=== PATIENT | female | born 1995 | race Caucasian/White ===

== ENCOUNTER 2019-02-18 17:37 | Emergency (ER) | payer OTHER ==
[2019-02-18] MEDS ORDERED: morphine CARPU-JECT 2 MG/1 ML DISP.SYRIN IVPUSH ONE (17:43)
[2019-02-18 17:44] VITALS: BMI 30.9
--- NOTE | 2019-02-18 17:46 | PDOC ---
Rapid Medical Evaluation Chief Complaint: Vaginal Bleeding Time Seen by Provider: 02/18/19 17:42 Medical Evaluation: Allergies Allergy/AdvReac Type Severity Reaction Status Date / Time No Known Allergies Allergy Verified 10/29/17 15:55 Vital Signs Temp Pulse Resp BP Pulse Ox 98.1 F 90 19 143/80 99 02/18/19 17:41 02/18/19 17:41 02/18/19 17:41 02/18/19 17:41 02/18/19 17:41 02/18/19 17:43 Patient c/o: severe abd cramping with heavy vag bleed, lmp 01/23, no hx of fibroid/endometriosis Patient on brief exam: vss, mid suprapubic tenderness Patient ordered for: labs, urine, iv, mso4 Patient to proceed to the ED Discharge Disposition - Diagnosis Abdominal pain, Miscarriage - Discharge Dispostion Disposition: HOME Condition at time of disposition: Stable - Referrals Referrals: Andres Franco MD [Staff Physician] - - Patient Instructions Printed Discharge Instructions: DI for Miscarriage Additional Instructions: Please have your beta hcg lab repeated on SaturdayFebruary 20. Please call your PHYSICAL SCIENCES PROFESSOR tomorrow to schedule a follow up appointment. If you start to have heavy vaginal bleeding - more than 2 pads an hour for more than 2 hours please return to the emergency room immediately. Please return to the ED with any further concerns or complaints. - Post Discharge Activity
[2019-02-18 18:14] LABS: BASO % 0.4 % (0-2.0); EOS % 3.7 % (0-4.5); HEMATOCRIT 40.4 % (32.4-45.2); HEMOGLOBIN 13.5 GM/dL (10.7-15.3); LYMPH % 34.9 % (8-40); MCH 31.2 pg (25.7-33.7); MCHC 33.5 g/dl (32.0-36.0); MEAN CELL VOLUME 93.2 fl (80-96); MEAN PLT VOLUME 10.4 fl (7.5-11.1); MONO % 7.6 % (3.8-10.2); NEUT % 53.4 % (42.8-82.8); PLATELET COUNT 249 K/MM3 (134-434); RBC 4.34 M/mm3 (3.60-5.2); RDW 12.4 % (11.6-15.6); WHITE BLOOD COUNT 6.7 K/mm3 (4.0-10.0)
[2019-02-18] MEDS ORDERED: ACETAMINOPHEN 325 MG TABLET (FP) PO ONE (18:32)
[2019-02-18 18:35] LABS: ALBUMIN 3.9 g/dl (3.4-5.0); BILIRUBIN,TOTAL 0.2 mg/dL (0.2-1); BLOOD UREA NITROGEN 7.1 mg/dL (7-18); CALCIUM 9.7 mg/dL (8.5-10.1); CREATININE 0.7 mg/dL (0.55-1.3); POTASSIUM 4.1 mmol/L (3.5-5.1); TOT PROT 7.9 g/dl (6.4-8.2)
[2019-02-18] MEDS ORDERED: ACETAMINOPHEN 1000 MG/100 ML VIAL (NON FORMULARY) IVPB ONE (18:42)
[2019-02-18] MEDS ORDERED: SODIUM CHLORIDE 0.9% 1000 ML INFUS.BAG IV ONE (18:42)
[2019-02-18] MEDS ORDERED: ACETAMINOPHEN INJECTION 100 ML IVPB ONE (18:43)
--- NOTE | 2019-02-18 19:01 | PDOC ---
Documentation entered by Gunner Tran SCRIBE, acting as scribe for Samanta Gifford DO. Samanta Gifford DO: This documentation has been prepared by the Marc dominguez Xhesika, SCRIBE, under my direction and personally reviewed by me in its entirety. I confirm that the documentation accurately reflects all work, treatment, procedures, and medical decision making performed by me. History of Present Illness - General Chief Complaint: Vaginal Bleeding Stated Complaint: VAGINAL BLEEDING/ABD/PAIN Time Seen by Provider: 02/18/19 17:42 History Source: Patient Exam Limitations: No Limitations - History of Present Illness Initial Comments: 02/18/19 18:46 The patient is a 23 year old female, , ?currently , with no significant past medical history, who presents to the emergency department with 3 days of heavy vaginal bleeding with clots and severe abdominal cramping. Patient notes she has been going through 3 pads per day. Patient reports her last normal menstrual period was 01/25/19. Pt denies any vaginal discharge prior to her . The patient denies chest pain, shortness of breath, headache and dizziness. Denies fever, chills, cough, nausea, vomiting, diarrhea and constipation. Allergies: NKDA Past surgical history: Social history: denies tobacco, and illicit drug use Past History - Past Medical History Allergies/Adverse Reactions: Allergies Allergy/AdvReac Type Severity Reaction Status Date / Time No Known Allergies Allergy Verified 02/18/19 17:44 Home Medications: Ambulatory Orders NK [No Known Home Medication] 02/18/19 COPD: No - Psycho Social/Smoking Cessation Hx Smoking History: Never smoked Information on smoking cessation initiated: No Hx Alcohol Use: No Drug/Substance Use Hx: No Substance Use Type: None Review of Systems - Review of Systems Able to Perform ROS?: Yes Comments:: 02/18/19 18:47 GENERAL/CONSTITUTIONAL: No fever or chills. No weakness. HEAD, EYES, EARS, NOSE AND THROAT: No change in vision. No ear pain or discharge. No sore throat. CARDIOVASCULAR: No chest pain or shortness of breath. RESPIRATORY: No cough, wheezing, or hemoptysis. GASTROINTESTINAL: No nausea, vomiting, diarrhea or constipation. GENITOURINARY: No dysuria, frequency, or change in urination. PELVIC: + vaginal bleeding with clots. +abdominal cramping MUSCULOSKELETAL: No joint or muscle swelling or pain. No neck or back pain. SKIN: No rash NEUROLOGIC: No headache, vertigo, loss of consciousness, or change in strength/ sensation. ENDOCRINE: No increased thirst. No abnormal weight change. HEMATOLOGIC/LYMPHATIC: No anemia, easy bleeding, or history of blood clots. ALLERGIC/IMMUNOLOGIC: No hives or skin allergy. *Physical Exam - Vital Signs Last Vital Signs Temp Pulse Resp BP Pulse Ox 98.1 F 90 19 143/80 99 02/18/19 17:41 02/18/19 17:41 02/18/19 17:41 02/18/19 17:41 02/18/19 17:41 - Physical Exam 02/18/19 18:48 GENERAL: Awake, alert, and fully oriented, in no acute distress LUNGS: Breath sounds equal, clear to auscultation bilaterally. No wheezes, and no crackles HEART: Regular rate and rhythm, normal S1 and S2, no murmurs, rubs or gallops ABDOMEN: +tenderness to palpation at suprapubic region. Soft, normoactive bowel sounds. No guarding, no rebound. No masses PELVIC: +actively bleeding with clot at cervix. EXTREMITIES: Normal range of motion, no edema. No clubbing or cyanosis. No cords, erythema, or tenderness NEUROLOGICAL: Cranial nerves II through XII grossly intact. SKIN: Warm, Dry, normal turgor, no rashes or lesions noted. ED Treatment Course - LABORATORY CBC & Chemistry Diagram: 02/18/19 17:53 02/18/19 17:53 - ADDITIONAL ORDERS Additional order review: Laboratory Results 02/18/19 02/18/19 17:53 17:53 Sodium 138 Potassium 4.1 Chloride 104 Carbon Dioxide 26 Anion Gap 7 L BUN 7.1 Creatinine 0.7 Est GFR (CKD-EPI)AfAm 142.54 Est GFR (CKD-EPI)NonAf 122.98 Random Glucose 97 Calcium 9.7 Total Bilirubin 0.2 AST 16 ALT 25 Alkaline Phosphatase 65 Total Protein 7.9 Albumin 3.9 Serum , Qual Positive 02/18/19 17:53 RBC 4.34 MCV 93.2 MCHC 33.5 RDW 12.4 MPV 10.4 Neutrophils % 53.4 D Lymphocytes % 34.9 D Monocytes % 7.6 Eosinophils % 3.7 Basophils % 0.4 - RADIOLOGY Radiology Studies Ordered: Category Date Time Status TRANSVAGINAL US PREG [US] Stat Ultrasound 02/18/19 18:31 Ordered - Medications Given in the ED: ED Medications Discontinued Medications Generic Name Dose Route Start Last Admin Trade Name Wisam PRN Reason Stop Dose Admin Acetaminophen 1,000 mg 02/18/19 18:42 02/18/19 18:56 Ofirmev Injection - IVPB 02/18/19 18:43 1,000 mg ONCE ONE Administration Sodium Chloride 1,000 ml 02/18/19 18:42 02/18/19 18:56 Normal Saline - IV 02/18/19 18:43 1,000 ml ONCE ONE Administration Medical Decision Making - Medical Decision Making 02/18/19 18:58 a/p: 23yo with heavy vaginal bleeding and cramping x 3 days -pt states LMP 11/10 and was a normal cycle -states heavy bleeding, passing clots x 3 days -cramping in lower abd -1 prior c section -labs from [facility] reviewed and serum preg + -will add beta, type and screen, coags -will start ivf hydraiton -os open on exam with clot with poss products of conception at the open os, unable to grab it or remove it -will monitor and reassess -pt to [facility] 02/18/19 19:14 concern pt is actively having a miscarriage 02/18/19 21:27 beta 800 a+ on labs tvus shows clots and missed ab pt states pain improved 02/18/19 21:52 discussed labs and imaging pt states barely bleeding now discussed follow up with [facility] in 1-2 days ([facility]park) and also having a repeat beta hcg pt states she feels better and no longer has pain stable for dc to home answered all questions and discussed all reasons to return to the ED Discharge - Discharge Information Problems reviewed: Yes Clinical Impression/Diagnosis: Abdominal pain, Miscarriage Condition: Stable Disposition: HOME - Admission No - Follow up/Referral Referrals: Andres Franco MD [Staff Physician] - - Patient Discharge Instructions Patient Printed Discharge Instructions: DI for Miscarriage Additional Instructions: Please have your beta hcg lab repeated on SaturdayFebruary 20. Please call your SCALE MECHANIC tomorrow to schedule a follow up appointment. If you start to have heavy vaginal bleeding - more than 2 pads an hour for more than 2 hours please return to the emergency room immediately. Please return to the ED with any further concerns or complaints. - Post Discharge Activity
[2019-02-18 19:53] LABS: INR 0.96 (0.83-1.09); PROTHROMBIN TIME (PATIENT) 11.3 SEC (9.7-13.0)
[2019-02-18 19:56] LABS: ACTIVATED PTT 28.3 SECONDS (25.2-36.5)
[2019-02-18 20:34] VITALS: TEMP 98.4
[2019-02-18 22:01] VITALS: BP 134/74; PULSE 81
== END 2019-02-18 22:01 | disposition home or self-care (01) ==
LOC: JER 17:37
PROC: 3E033NZ Introduction of Analgesics, Hypnotics, Sedatives into Peripheral Vein, Percutaneous Approach (ICD-10-PCS; principal; 2019-02-18)
DX: O03.9 Complete or unspecified spontaneous abortion without complication (principal); R10.9 Unspecified abdominal pain
CPT/HCPCS: 36415; 76817-TC; 80053; 84702; 84703; 85025; 85610; 85730; 86850; 86900; 86901; 99283-25; J0131; J7030

== ENCOUNTER 2020-03-07 10:44 | Emergency (ER) | payer OTHER ==
[2020-03-07 11:00] VITALS: BP 128/76; PULSE 76; TEMP 98.1; BMI 31.7
[2020-03-07 11:46] LABS: EPI CELLS >36 /uL (0-25.1); HYALINE CASTS 3 /uL (0-3.1); PH,URINE 5.5 (5.0-8.0); URINE APPEARANCE CLEAR; URINE BACTERIA 487 /uL (0-1359); URINE BILIRUBIN NEGATIVE (NEGATIVE); URINE COLOR YELLOW; URINE GLUCOSE (UA) NEGATIVE (NEGATIVE); URINE KETONE NEGATIVE (NEGATIVE); URINE LEUK ESTERASE TRACE (NEGATIVE); URINE NITRITE NEGATIVE (NEGATIVE); URINE PROTEIN NEGATIVE (NEGATIVE); URINE RBC 9 /uL (0-23.9); URINE WBC 21 /uL (0-25.8)
== END 2020-03-07 13:33 | disposition home or self-care (01) ==
LOC: JER 10:44 → JERFT 10:44
DX: O23.41 Unspecified infection of urinary tract in pregnancy, first trimester (principal); Z3A.00 Weeks of gestation of pregnancy not specified
CPT/HCPCS: 81003; 84703; 87086; 99283-25

== ENCOUNTER 2020-07-23 16:05 | Emergency (ER) | payer OTHER ==
[2020-07-23] MEDS ORDERED: SODIUM CHLORIDE 0.9% 500 ML INFUS.BAG IV ONE (16:24)
[2020-07-23] MEDS ORDERED: ACETAMINOPHEN 325 MG TABLET (FP) PO ONE (16:24)
[2020-07-23 16:40] VITALS: BMI 30.9
[2020-07-23] MEDS ORDERED: METOCLOPRAMIDE HCL INJECTION 10 MG/2 ML VIAL IVPB ONE (17:14)
[2020-07-23 17:31] LABS: BASO % 0.6 % (0-2.0); EOS % 2.1 % (0-4.5); HEMATOCRIT 36.5 % (32.4-45.2); HEMOGLOBIN 12.4 GM/dL (10.7-15.3); LYMPH % 26.6 % (8-40); MCH 31.4 pg (25.7-33.7); MCHC 33.9 g/dl (32.0-36.0); MEAN CELL VOLUME 92.8 fl (80-96); MONO % 6.6 % (3.8-10.2); NEUT % 64.1 % (42.8-82.8); PLATELET COUNT 170 K/MM3 (134-434); RBC 3.93 M/mm3 (3.60-5.2); WHITE BLOOD COUNT 6.1 K/mm3 (4.0-10.0)
[2020-07-23] MEDS ORDERED: METOCLOPRAMIDE HCL INJECTION 10 MG/2 ML VIAL ONE (17:36)
[2020-07-23] MEDS ORDERED: ACETAMINOPHEN 325 MG TABLET (FP) ONE (17:36)
[2020-07-23 17:41] LABS: EPI CELLS >36 /uL (0-25.1); HYALINE CASTS 7 /uL (0-3.1); PH,URINE 7.5 (5.0-8.0); URINE APPEARANCE CLEAR; URINE BACTERIA 404 /uL (0-1359); URINE BILIRUBIN NEGATIVE (NEGATIVE); URINE COLOR YELLOW; URINE GLUCOSE (UA) NEGATIVE (NEGATIVE); URINE KETONE TRACE (NEGATIVE); URINE LEUK ESTERASE NEGATIVE (NEGATIVE); URINE NITRITE NEGATIVE (NEGATIVE); URINE PROTEIN 1+ (NEGATIVE); URINE RBC 5 /uL (0-23.9); URINE UROBILINOGEN 0.2 mg/dL (0.2-1.0); URINE WBC 26 /uL (0-25.8)
[2020-07-23 17:48] LABS: CALCIUM 8.7 mg/dL (8.5-10.1)
[2020-07-23 17:49] LABS: BLOOD UREA NITROGEN 6.8 mg/dL (7-18); MAGNESIUM 1.9 mg/dL (1.8-2.4)
[2020-07-23 17:52] LABS: CREATININE 0.6 mg/dL (0.55-1.3)
[2020-07-23 17:53] LABS: BILIRUBIN,TOTAL 0.2 mg/dL (0.2-1)
[2020-07-23 17:54] LABS: TOT PROT 6.7 g/dl (6.4-8.2)
[2020-07-23] MEDS ORDERED: CEPHALEXIN MONOHYDRATE 500 MG CAPSULE (UD) PO ONE (18:08)
[2020-07-23] MEDS ORDERED: CEPHALEXIN MONOHYDRATE 500 MG CAPSULE (UD) ONE (18:26)
[2020-07-23 20:22] VITALS: BP 107/62; TEMP 98.7
[2020-07-23 20:48] VITALS: PULSE 77
== END 2020-07-23 21:30 | disposition home or self-care (01) ==
LOC: JER 16:05
PROC: 3E033GC Introduction of Other Therapeutic Substance into Peripheral Vein, Percutaneous Approach (ICD-10-PCS; principal; 2020-07-23)
DX: R42 Dizziness and giddiness (principal); R51.9 Headache, unspecified; N30.00 Acute cystitis without hematuria
CPT/HCPCS: 36415; 76815; 80053; 81003; 83735; 85025; 87086; 93005; 93010; 99284-25; C9803; U0003; U0005